=== PATIENT | female | born 1995 | race Caucasian/White ===

== ENCOUNTER 2017-03-03 21:34 | Emergency (ER) | payer MEDICAID ==
[2017-03-03] MEDS ORDERED: Ibuprofen 800 MG Tab PO ONE (21:56)
--- NOTE | 2017-03-03 23:43 | EDM.PDOC ---
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 She had a little left sided chest wall pain radiating down to the LUQ of the abdomen. She also has a little cough and sorethroat. Her left sided chest and abdomen pain is worsened by a cough or deep breath. No fever or chills and no other complaints. Onset: Today Onset Date: 03/03/17 Onset Time: 16:00 Duration: Hour(s): (4) Location: Reports: Neck, Chest Quality: Reports: Sharp, Stabbing Severity: Mild Improves with: Reports: Medication Worsens with: Reports: Breathing, Other (cough) Context: Reports: Other (Recent cold. 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 Left Chest Pain Score (Numeric/FACES): 6 - Related Data Allergies Allergy/AdvReac Type Severity Reaction Status Date / Time No Known Allergies Allergy Verified 03/03/17 21:51 Home Meds: Home Meds NK [No Known Home Meds] 03/03/17 [History] Past Medical History - Past Health History Medical/Surgical History: Denies Medical/Surgical History Social & Family History - Family History Family Medical History: Noncontributory - Tobacco Use Smoking Status *Q: Never Smoker Second Hand Smoke Exposure: No - Caffeine Use Caffeine Use: Reports: Soda - Recreational Drug Use Recreational Drug Use: No ED ROS GENERAL - Review of Systems Review Of Systems: See Below Constitutional: Reports: No Symptoms HEENT: Reports: Throat Pain Respiratory: Reports: Pleuritic Chest Pain, Cough Cardiovascular: Reports: Chest Pain (Pleuritic. Non exertional.) Endocrine: Reports: No Symptoms GI/Abdominal: Reports: Abdominal Pain (Radiating to the LUQ) : Reports: Irregular Menses Musculoskeletal: Reports: No Symptoms Skin: Reports: No Symptoms Neurological: Reports: No Symptoms Psychiatric: Reports: No Symptoms Hematologic/Lymphatic: Reports: No Symptoms Immunologic: Reports: No Symptoms ED EXAM, RENAL/ - Physical Exam Exam: See Below Exam Limited By: No Limitations General Appearance: Alert, WD/WN, No Apparent Distress Eye Exam: Bilateral Eye: EOMI, Normal Fundi, Normal Inspection Ears: Normal External Exam Nose: Normal Inspection, Normal Mucosa, No Blood Throat/Mouth: Normal Inspection, Normal Lips, Normal Teeth, Normal Gums, Normal Oropharynx, Normal Voice, No Airway Compromise Head: Atraumatic, Normocephalic Neck: Normal Inspection, Supple, Non-Tender, Full Range of Motion Respiratory/Chest: No Respiratory Distress, Lungs Clear, Normal Breath Sounds, No Accessory Muscle Use, Chest Non-Tender Cardiovascular: Normal Peripheral Pulses, Regular Rate, Rhythm, No Edema, No Gallop, No JVD, No Murmur, No Rub GI/Abdominal: Normal Bowel Sounds, Soft, Non-Tender, No Organomegaly, No Distention, No Abnormal Bruit, No Mass Back Exam: Normal Inspection Extremities: Normal Inspection, Normal Range of Motion, Non-Tender, Normal Capillary Refill, No Pedal Edema Neurological: Alert, Oriented, CN II-XII Intact, Normal Cognition, Normal Gait, Normal Reflexes, No Motor/Sensory Deficits Psychiatric: Normal Affect Skin Exam: Warm, Dry, Intact, Normal Color, No Rash Lymphatic: No Adenopathy Course - Vital Signs Text/Narrative:: Uneventful ED course. She responded well to 800 mg of oral Ibuprofen that essentially got rid of her pleurisy and sorethroat. Her labs, D-dimer and rapid strep were all negative. Culture is pending. She will go home on Ibuprofen 800 mg po q 6 hours, tylenol 500 mg po q 4 hours, rest, steam, saltwater gargles, lozenges, and recheck prn with PCP. Last Recorded V/S: Last Vital Signs Temp 36.8 C 03/03/17 21:51 Pulse 98 03/03/17 21:51 Resp 16 03/03/17 21:51 BP 117/78 03/03/17 21:51 Pulse Ox 100 03/03/17 21:51 - Orders/Labs/Meds Orders: Active Orders 24 hr Category Date Time Status CULTURE STREP A CONFIRMATION [] Stat Lab 03/03/17 22:12 Results STREP SCRN A RAPID W CULT CONF [] Stat Lab 03/03/17 22:12 Results Labs: Laboratory Tests 03/03/17 03/03/17 03/03/17 Range/Units 22:10 22:10 22:10 WBC 7.7 (4.5-12.0) X10-3/uL RBC 5.56 H (3.23-5.20) x10(6)uL Hgb 13.4 (11.5-15.5) g/dL Hct 41.2 (30.0-51.3) % MCV 74.1 L (80-96) fL MCH 24.1 L (27.7-33.6) pg MCHC 32.5 (32.2-35.4) g/dL RDW 15.5 (11.5-15.5) % Plt Count 244 (125-369) X10(3)uL MPV 9.5 (7.4-10.4) fL Neut % (Auto) 72.8 (46-82) % Lymph % (Auto) 19.4 (13-37) % Parker % (Auto) 5.9 (4-12) % Eos % (Auto) 1 (1.0-5.0) % Baso % (Auto) 1 (0-2) % Neut # (Auto) 5.6 (1.6-8.3) # Lymph # (Auto) 1.5 (0.6-5.0) # Parker # (Auto) 0.5 (0.0-1.3) # Eos # (Auto) 0.1 (0.0-0.8) # Baso # (Auto) 0.0 (0.0-0.2) # D-Dimer, Quantitative < 100 L (100-400) ng/mL Sodium 141 (135-145) mmol/L Potassium 3.9 (3.5-5.3) mmol/L Chloride 107 (100-110) mmol/L Carbon Dioxide 25 (23-29) mmol/L BUN 14 (5-20) mg/dL Creatinine 0.9 (0.6-1.3) mg/dL Est Cr Clr Drug Dosing 78.86 mL/min Estimated GFR (MDRD) > 60 (>60) BUN/Creatinine Ratio 15.6 (9-20) Glucose 106 (80-116) mg/dL Calcium 9.5 (8.6-10.2) mg/dL Total Bilirubin 0.3 (0.1-1.3) mg/dL AST 17 (5-27) IU/L ALT 14 (14-26) IU/L Alkaline Phosphatase 84 (56-112) IU/L Total Protein 8.2 H (6.0-8.0) g/dL Albumin 4.4 (3.5-5.2) g/dL Globulin 3.8 g/dL Albumin/Globulin Ratio 1.2 Meds: Medications Discontinued Medications Generic Name Dose Route Start Last Admin Trade Name Jose PRN Reason Stop Dose Admin Ibuprofen 800 mg 03/03/17 21:56 03/03/17 22:38 Motrin PO 03/03/17 21:57 800 mg ONETIME ONE Administration Departure - Departure Time of Disposition: 23:50 Disposition: Home, Self-Care 01 Condition: Good Clinical Impression: URI (upper respiratory infection), Pleurisy, Viral pharyngitis - Discharge Information Referrals: PCP,None [Primary Care Provider] - - My Orders Last 24 Hours: My Active Orders 03/03/17 22:12 CULTURE STREP A CONFIRMATION [RM] Stat STREP SCRN A RAPID W CULT CONF [] Stat - Assessment/Plan Last 24 Hours: My Active Orders 03/03/17 22:12 CULTURE STREP A CONFIRMATION [RM] Stat STREP SCRN A RAPID W CULT CONF [] Stat
== END 2017-03-03 23:55 | disposition home or self-care (01) ==
LOC: FB.ED 21:34
DX: R09.1 Pleurisy (principal); J02.8 Acute pharyngitis due to other specified organisms; B34.8 Other viral infections of unspecified site
CPT/HCPCS: 36415; 80053; 85025; 85379; 87081; 87430; 99282; A9270